=== PATIENT | male | born 1955 | race Caucasian/White ===

== ENCOUNTER 2016-08-21 06:45 | Observation (INO) | payer MEDICARE, OTHER ==
[~2016-08-21] VITALS: Ht 172.7 cm; Wt 80.0 kg
[2016-08-21] VITALS (10 sets, daily range): BP systolic 129–160; BP diastolic 80–103; PULSE 70–98; RESP 16–20; TEMP 98.3–98.7; O2SAT 97–100
[~2016-08-21 06:45] MED LIST: HYDR-2768 PO; METH500T3 PO; METO50TA OR; NEUR400C PO; TRAM50 PO
[2016-08-21] MEDS ORDERED: SODIUM CHLOR 0.9% 1000 ML INJ 1,000 ML IV SCH (07:06)
[2016-08-21] MEDS ORDERED: METO50TA PO (07:09)
[2016-08-21] MEDS ORDERED: ceFAZolin 2 GM PREMIX 50 ML IV ONE (07:15)
[2016-08-21] MEDS ORDERED: DIPHTH/TETANUS/ACEL PERTUSSIS (BOOSTER) 0.5 ML VIAL/PFS IM ONE (07:15)
[2016-08-21] MEDS ORDERED: SODIUM CHLORIDE 0.9% FLUSH 10 ML FLUSH IVF PRN (07:15)
--- NOTE | 2016-08-21 07:19 | PD ---
HPI Chief Complaint: Fall Time Seen by Provider: 07:06 Travel History International Travel<30 days: No Contact w/Intl Traveler<30days: No Traveled to known affect area: No History of Present Illness HPI The patient is a 60 year old male who presents to the [facility] emergency department with a history of reportedly getting up to go the bathroom at approximately 2:30 AM, and this is the last thing the patient recalls. The patient was found outside of his mobile home on the ground with hematoma to the right side of his head. The patient normally uses a cane or walker for assistance with walking as he does have a right [id number]-[id number] amputation with a prosthetic device. The patient reports that he cannot recall how he ended up outside. The patient is incontinent of urine and stool. The patient arrives by ambulance services in full C-spine immobilization on a backboard. The patient on arrival is drowsy although easily awakened. The patient is able to provide his history. He is unsure whether he passed out. The patient denies any extremity pain. The patient denies any numbness or tingling to his extremities. He denies having any one-sided weakness, facial droop, slurred speech, or difficulty with word finding ability. The patient denies any recent fevers, cough, congestion, neck pain, chest pain, shortness of breath, abdominal pain, vomiting, diarrhea, urinary symptoms, or other neurologic symptoms. [facility] Past Medical History Narrative Medical The patient's past medical history is significant for hypertension, seasonal allergies, psychiatric disorder, acid reflux, COPD. Arthritis: No Asthma: No Autoimmune Disease: No Blood Disorders: No Anxiety: Yes Depression: No Heart Rhythm Problems: No Cancer: Yes (QUESTIONABLE HISTORY OF COLON CA) Cardiovascular Problems: Yes High Cholesterol: No Chemotherapy: No Chest Pain: No Congestive Heart Failure: No COPD: Yes Cerebrovascular Accident: No Diabetes: No Diminished Hearing: No Endocrine: No Gastrointestinal Disorders: Yes GERD: Yes Glaucoma: No Genitourinary: No Headaches: Yes Hepatitis: No Hiatal Hernia: No Hypertension: Yes Immune Disorder: No Implanted Vascular Access Dvce: Yes Kidney Stones: No Musculoskeletal: Yes (RIGHT AKA; RIGHT 5th FINGER FX.-10/05/08) Neurologic: Yes Psychiatric: Yes (PTSD) Reproductive: No Respiratory: Yes (SINUS PROBLEMS/NASAL ALLERGIES) Migraines: No Myocardial Infarction: No Radiation Therapy: No Renal Failure: No Seizures: No Sickle Cell Disease: No Sleep Apnea: No Thyroid Disease: No Ulcer: No Past Surgical History Narrative Surgical The Patient has a history of an exploratory abdominal surgery, appendectomy, right [id number] amputation, left leg ORIF Abdominal Surgery: Yes (EXPLORATORY LAP.; APPENDECTOMY) AICD: No Appendectomy: Yes Arteriovenous Shunt: No Body Medical Devices: HARDWARE LEFT LEG Cardiac Surgery: No Cholecystectomy: No Ear Surgery: No Endocrine Surgery: No Eye Surgery: No Genitourinary Surgery: No Gynecologic Surgery: No Insulin Pump: No Joint Replacement: No Oral Surgery: No Pacemaker: No Thoracic Surgery: No Other Surgery: Yes (R AKA; LEFT LEG PINS AND RODS; APPENDECTOMY; ) Social History Alcohol Use: No Tobacco Use: No Substance Use: No Allergies-Medications (Allergen,Severity, Reaction): Coded Allergies: Aspirin (Verified Allergy, Severe, MUSCLE SPASM, 08/21/16) Flexeril (Verified Allergy, Severe, MUSCLE SPASM, 08/21/16) Reported Meds & Prescriptions Reported Meds & Active Scripts Active Reported Metoprolol Tartrate 50 Mg Tab 50 Mg PO DAILY Review of Systems Except as stated in HPI: all other systems reviewed are Neg General / Constitutional: No: Fever Eyes: No: Visual changes HENT: Positive: Headaches, No: Neck Stiffness, Neck Pain Cardiovascular: No: Chest Pain or Discomfort Respiratory: No: Shortness of Breath Gastrointestinal: No: Nausea, Vomiting, Diarrhea, Abdominal Pain Genitourinary: No: Dysuria Musculoskeletal: No: Pain Skin: No Rash Neurologic: Positive: Weakness (generalized weakness), No: Focal Abnormalities , Change in Mentation, Slurred Speech, Sensory Disturbance Psychiatric: No: Depression Endocrine: No: Polydipsia Hematologic/Lymphatic: No: Easy Bruising Physical Exam Narrative General: The patient is a well-developed well-nourished male in no acute distress. The patient is brought in on a back board in full c-spine immobilization by emergency services. Head and Neck exam: Head is normocephalic, with evidence of trauma to the left side of the forehead , left lateral eyebrow area where he has a hematoma with overlying abrasion. There is tenderness on palpation. There is swelling to the upper eyelid. No step-off or crepitus. No increase facial bone motility on palpation. No other facial bone tenderness on palpation. Eyes: EOMI, pupils are equal round and reactive to light. Nose: Midline septum with pink mucous membranes Mouth: Dentition unremarkable. Moist mucus membranes. Posterior oropharynx is not erythematous. No tonsillar hypertrophy. Uvula midline. Airway patent. Neck: The patient is immobilized in a cervical collar. No tracheal deviation. The trachea appears midline. Cardiovascular: Regular rate and rhythm without murmurs, gallops, or rubs. No pulse deficit to the extremities. Lungs: Clear to auscultation bilaterally. No wheezes, rhonchi, or rales. No chest wall tenderness to palpation. No erythema or ecchymosis noted. No crepitus , step off, or flail segment noted. Abdomen: Soft, without tenderness to palpation in all 4 quadrants of the abdomen. No guarding, rebound, or rigidity. No erythema or ecchymosis noted. Extremities: No instability or pain noted on pelvic rock. No clubbing, cyanosis , or edema. 2+ pulses in all 4 extremities. No extremity tenderness or deformity noted on palpation or passive/ active range of motion. Back: The patient was log rolled off of the back board. No spinous process tenderness to palpation. No stepoff or crepitus noted. No costovertebral angle tenderness to palpation. No erythema or ecchymosis. Neurologic Exam: Cranial nerves 2-12 were intact on exam. Strength is 5/5 in all 4 extremities. No sensory deficits noted. Skin Exam: The patient has erythematous papules noted on his extremities and along the waistband. There are no burrowing sosa. The patient is noted to have insects in his clothing suspicious for bedbugs. The patient has an abrasion to the right dorsum of the fifth digit. There is no crepitus or step- off. The patient has full range of motion without pain. Data Data Last Documented VS Vital Signs Date Time Temp Pulse Resp B/P Pulse Ox O2 Delivery O2 Flow Rate FiO2 08/21/16 06:53 75 18 96 08/21/16 06:48 98.7 150/103 Orders Electrocardiogram (08/21/16 07:06) Complete Blood Count With Diff (08/21/16 07:06) Comprehensive Metabolic Panel (08/21/16 07:06) Creatine Kinase (Cpk) (08/21/16 07:06) Ckmb (Isoenzyme) Profile (08/21/16 07:06) Troponin I (08/21/16 07:06) B-Type Natriuretic Peptide (08/21/16 07:06) Prothrombin Time / Inr (Pt) (08/21/16 07:06) Act Partial Throm Time (Ptt) (08/21/16 07:06) Lipase (08/21/16 07:06) Urinalysis - C+S If Indicated (08/21/16 07:06) Magnesium (Mg) (08/21/16 07:06) Chest, Single Ap (08/21/16 07:06) Ct Brain W/O Iv Contrast(Rout) (08/21/16 07:06) Pelvis, Ap Only (Routine) (08/21/16 07:06) Iv Access Insert/Monitor (08/21/16 07:06) Ecg Monitoring (08/21/16 07:06) Oximetry (08/21/16 07:06) Remove Backboard (08/21/16 07:06) Drug Screen, Random Urine (08/21/16 07:06) Alcohol (Ethanol) (08/21/16 07:06) Ct Cerv Spine W/O Contrast (08/21/16 07:06) Cefazolin 2 Gm Premix (Ancef 2 Gm Premix (08/21/16 07:15) Swpt-Elw-Wikqwj (Booster) Inj (Boostrix (08/21/16 07:15) Sodium Chlor 0.9% 1000 Ml Inj (Ns 1000 M (08/21/16 07:06) Sodium Chloride 0.9% Flush (Ns Flush) (08/21/16 07:15) MDM Medical Decision Making Medical Screen Exam Complete: Yes Emergency Medical Condition: Yes Medical Record Reviewed: Yes Differential Diagnosis Intracranial trauma, versus cervical spine injury, versus syncope, versus cardiac arrhythmia Narrative Course During the course of the patients emergency department visit, the patients history, examination, and differential diagnosis were reviewed with the patient. The patient had IV access obtained and blood work sent for analysis. 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 An EKG was ordered. A CT scan of the head and neck was ordered. A chest x-ray, pelvic x-ray was ordered. The patient was initially provided an update of his tetanus, Ancef 2 g IV, normal saline IV fluids. The patients laboratory studies and imaging studies were pending at the conclusion of my shift. The patient's case was checked out to the oncoming emergency physician to disposition based on the conclusion of his workup. Emma Salas MD August 21, 2016 07:19
[2016-08-21 07:39] LABS: AUTOMATED NEUTROPHIL # 14.4 TH/MM3 (1.8-7.7); BASOPHIL % 0.2 % (0.0-2.0); HEMATOCRIT 37.7 % (39.0-51.0); HEMO FLAGS DIFF FINAL; LYMPH % 5.6 % (9.0-44.0); LYMPHOCYTE # 0.9 TH/MM3 (1.0-4.8); MEAN CELL VOLUME 93.9 FL (80.0-100.0); MEAN CORPUSCULAR HEMOGLOBIN 33.5 PG (27.0-34.0); MEAN CORPUSCULAR HGB CONC 35.6 % (32.0-36.0); MONO % 5.1 % (0.0-8.0); NEUT % 89.1 % (16.0-70.0); PLATELET COUNT 259 TH/MM3 (150-450); RED BLOOD COUNT 4.01 MIL/MM3 (4.50-5.90); RED CELL DISTRIBUTION WIDTH 12.8 % (11.6-17.2); WHITE BLOOD COUNT 16.1 TH/MM3 (4.0-11.0)
[2016-08-21 07:46] LABS: APTT (PATIENT) 24.2 SEC (24.3-30.1); INTERNATIONAL NORMALIZED RATIO 1.1 RATIO
[2016-08-21 07:51] LABS: ANION GAP 10 MEQ/L (5-15); AST (GOT) 83 U/L (15-37); BICARBONATE 27.2 MEQ/L (21.0-32.0); BLOOD UREA NITROGEN 7 MG/DL (7-18); CHLORIDE 102 MEQ/L (98-107); GLOMERULAR FILTRATION RATE 107 ML/MIN (>89); MAGNESIUM 2.1 MG/DL (1.5-2.5); POTASSIUM 3.1 MEQ/L (3.5-5.1); SODIUM (NA) 139 MEQ/L (136-145)
[2016-08-21 07:54] LABS: ALKALINE PHOSPHATASE 48 U/L (45-117); ALT (GPT) 119 U/L (12-78); CREATINE KINASE 129 U/L (39-308); TOTAL BILIRUBIN ADULT 0.6 MG/DL (0.2-1.0)
[2016-08-21 08:06] LABS: CKMB 2.4 NG/ML (0.5-3.6)
[2016-08-21] MEDS ORDERED: SODIUM CHLOR 0.9% 1000 ML INJ 1,000 ML IV ONE (08:45)
--- NOTE | 2016-08-21 09:00 | RADRPT ---
EXAM DATE/TIME: 08/21/2016 08:00 [facility] COMPARISON: No previous studies available for comparison. INDICATIONS : Pain after fall. MEDICAL HISTORY : None. SURGICAL HISTORY : None. ENCOUNTER: Initial ACUITY: 1 day PAIN SCORE: 0/10 LOCATION: Bilateral Pelvis. FINDINGS: The bony structures of the pelvis are grossly intact. There is good alignment of the SI joints and pu bis symphysis. The right hip is unremarkable. There is some shortening of the left femoral neck which could be positional. There are degenerative changes of the lower lumbar spine. CONCLUSION: 1. Shortening of the left femoral neck. Recommend a complete x-ray study of the left hip. 2. The bony structures of pelvis are grossly intact. Saeid Barba MD on August 21, 2016 at 8:56 Board Certified Radiologist. This report was verified electronically.
--- NOTE | 2016-08-21 09:07 | RADRPT ---
EXAM DATE/TIME: 08/21/2016 07:55 [facility] COMPARISON: No previous studies available for comparison. INDICATIONS : Chest pain. MEDICAL HISTORY : None. SURGICAL HISTORY : None. ENCOUNTER: Initial ACUITY: 1 day PAIN SCORE: 0/10 LOCATION: Bilateral chest FINDINGS: Portable AP view of the chest demonstrates a normal-sized cardiac silhouette. No effusion, consolidat ion, or pneumothorax is visualized. The bones and soft tissues demonstrate no acute abnormality. Ther e are old healed left rib fractures and there is an old healed right clavicle fracture. CONCLUSION: No acute cardiopulmonary abnormality is identified. Luca Reno MD on August 21, 2016 at 9:02 Board Certified Radiologist. This report was verified electronically.
--- NOTE | 2016-08-21 10:00 | RADRPT ---
EXAM DATE/TIME: 08/21/2016 09:28 [facility] COMPARISON: PELVIS AP ONLY, August 21, 2016, 8:00. INDICATIONS : Fell. MEDICAL HISTORY : None. SURGICAL HISTORY : None. ENCOUNTER: Initial ACUITY: 1 day PAIN SCORE: Non-responsive. LOCATION: Left hip FINDINGS: Examination of the left hip was performed. There continues to be shortening of the left femoral neck compared to the right side. A Definite fracture line is not seen on plain films. However, the neck sh ortening is suspicious. Therefore, recommend a noncontrast CT scan of the left hip further evaluation . CONCLUSION: There continues to be shortening of the left neck. Recommend noncontrast CT scan of the left hip for further evaluation. Saeid Barba MD on August 21, 2016 at 9:57 Board Certified Radiologist. This report was verified electronically.
--- NOTE | 2016-08-21 10:23 | PD ---
Physical Exam Narrative GENERAL: well-developed patient. SKIN: Warm and dry. HEAD: Normocephalic and abrasions noted to left forehead EYES: No injection or drainage. ENT: No nasal drainage noted. NECK: Supple, trachea midline. c-collar in place CARDIOVASCULAR: Regular rate and rhythm RESPIRATORY: no increased effort. No accessory muscle use. GASTROINTESTINAL: Abdomen soft, non-tender, nondistended. EXTREMITIES: nttp over bilateral hips but limited exam NEUROLOGICAL: Awake, moves extremities. Normal speech. Data Data Last Documented VS Vital Signs Date Time Temp Pulse Resp B/P Pulse Ox O2 Delivery O2 Flow Rate FiO2 08/21/16 08:43 70 16 137/98 98 Room Air 08/21/16 06:48 98.7 Orders Electrocardiogram (08/21/16 07:06) Complete Blood Count With Diff (08/21/16 07:06) Comprehensive Metabolic Panel (08/21/16 07:06) Creatine Kinase (Cpk) (08/21/16 07:06) Ckmb (Isoenzyme) Profile (08/21/16 07:06) Troponin I (08/21/16 07:06) B-Type Natriuretic Peptide (08/21/16 07:06) Prothrombin Time / Inr (Pt) (08/21/16 07:06) Act Partial Throm Time (Ptt) (08/21/16 07:06) Lipase (08/21/16 07:06) Urinalysis - C+S If Indicated (08/21/16 07:06) Magnesium (Mg) (08/21/16 07:06) Chest, Single Ap (08/21/16 07:06) Ct Brain W/O Iv Contrast(Rout) (08/21/16 07:06) Pelvis, Ap Only (Routine) (08/21/16 07:06) Iv Access Insert/Monitor (08/21/16 07:06) Ecg Monitoring (08/21/16 07:06) Oximetry (08/21/16 07:06) Remove Backboard (08/21/16 07:06) Drug Screen, Random Urine (08/21/16 07:06) Alcohol (Ethanol) (08/21/16 07:06) Ct Cerv Spine W/O Contrast (08/21/16 07:06) Cefazolin 2 Gm Premix (Ancef 2 Gm Premix (08/21/16 07:15) Xpry-Ioo-Azdhdg (Booster) Inj (Boostrix (08/21/16 07:15) Sodium Chlor 0.9% 1000 Ml Inj (Ns 1000 M (08/21/16 07:06) Sodium Chloride 0.9% Flush (Ns Flush) (08/21/16 07:15) CKMB (08/21/16 07:18) CKMB% (08/21/16 07:18) Cath For Specimen (08/21/16 08:38) Sodium Chlor 0.9% 1000 Ml Inj (Ns 1000 M (08/21/16 08:45) Hip, Uni(4+Vws) Wo Ap Pelvis (08/21/16 ) Ct Hip W/O Contrast (08/21/16 ) Admit Order (Ed Use Only) (08/21/16 10:37) Labs Laboratory Tests Test 08/21/16 07:18 White Blood Count 16.1 TH/MM3 Red Blood Count 4.01 MIL/MM3 Hemoglobin 13.4 GM/DL Hematocrit 37.7 % Mean Corpuscular Volume 93.9 FL Mean Corpuscular Hemoglobin 33.5 PG Mean Corpuscular Hemoglobin 35.6 % Concent Red Cell Distribution Width 12.8 % Platelet Count 259 TH/MM3 Mean Platelet Volume 8.7 FL Neutrophils (%) (Auto) 89.1 % Lymphocytes (%) (Auto) 5.6 % Monocytes (%) (Auto) 5.1 % Eosinophils (%) (Auto) 0.0 % Basophils (%) (Auto) 0.2 % Neutrophils # (Auto) 14.4 TH/MM3 Lymphocytes # (Auto) 0.9 TH/MM3 Monocytes # (Auto) 0.8 TH/MM3 Eosinophils # (Auto) 0.0 TH/MM3 Basophils # (Auto) 0.0 TH/MM3 CBC Comment DIFF FINAL Differential Comment Prothrombin Time 12.0 SEC Prothromb Time International 1.1 RATIO Ratio Activated Partial 24.2 SEC Thromboplast Time Sodium Level 139 MEQ/L Potassium Level 3.1 MEQ/L Chloride Level 102 MEQ/L Carbon Dioxide Level 27.2 MEQ/L Anion Gap 10 MEQ/L Blood Urea Nitrogen 7 MG/DL Creatinine 0.74 MG/DL Estimat Glomerular Filtration 107 ML/MIN Rate Random Glucose 155 MG/DL Calcium Level 8.9 MG/DL Magnesium Level 2.1 MG/DL Total Bilirubin 0.6 MG/DL Aspartate Amino Transf 83 U/L (AST/SGOT) Alanine Aminotransferase 119 U/L (ALT/SGPT) Alkaline Phosphatase 48 U/L Total Creatine Kinase 129 U/L Creatine Kinase MB 2.4 NG/ML Troponin I LESS THAN 0.02 NG/ML B-Type Natriuretic Peptide 3 PG/ML Total Protein 7.7 GM/DL Albumin 3.8 GM/DL Lipase 74 U/L Ethyl Alcohol Level LESS THAN 3 MG/DL [facility] Supervised Visit with JAIME: No Interpretation(s) CBC & BMP Diagram 08/21/16 07:18 Last 24 hours Impressions Pelvis X-Ray 08/21/16705 Signed Impressions: Service Date/Time: Sunday, August 21, 2016 08:00 - CONCLUSION: 1. Shortening of the left femoral neck. Recommend a complete x-ray study of the left hip. 2. The bony structures of pelvis are grossly intact. Saeid Barba MD Chest X-Ray 08/21/16705 Signed Impressions: Service Date/Time: Sunday, August 21, 2016 07:55 - CONCLUSION: No acute cardiopulmonary abnormality is identified. Luca Reno MD Hip X-Ray 08/21/16 0000 Signed Impressions: Service Date/Time: Sunday, August 21, 2016 09:28 - CONCLUSION: There continues to be shortening of the left neck. Recommend noncontrast CT scan of the left hip for further evaluation. Saeid Barba MD Last 24 hours Impressions Pelvis X-Ray 08/21/16705 Signed Impressions: Service Date/Time: Sunday, August 21, 2016 08:00 - CONCLUSION: 1. Shortening of the left femoral neck. Recommend a complete x-ray study of the left hip. 2. The bony structures of pelvis are grossly intact. Saeid Barba MD Head CT 08/21/16705 Signed Impressions: Service Date/Time: Sunday, August 21, 2016 12:42 - CONCLUSION: 1. Unremarkable CT scan of the brain. 2. Soft tissue swelling left forehead. Saeid Barba MD Chest X-Ray 08/21/16705 Signed Impressions: Service Date/Time: Sunday, August 21, 2016 07:55 - CONCLUSION: No acute cardiopulmonary abnormality is identified. Luca Reno MD Hip X-Ray 08/21/16 0000 Signed Impressions: Service Date/Time: Sunday, August 21, 2016 09:28 - CONCLUSION: There continues to be shortening of the left neck. Recommend noncontrast CT scan of the left hip for further evaluation. Saeid Barba MD Narrative Course Signed over to me to follow workup and will likely need admit for syncope. Pelvic x-ray requested isolated hip x-ray which was added on and CT suggested which was also added on. Given patient's bedbug issue CT will need to be shut down for multiple hours after imaging so it has been requested that he have imaging on the way to his admission bed. We'll discuss with medical team. Patient updated. 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 He states he's not on any seizure medicine. He doesn't know why he had a seizure or if he is ever had one before and is very hard to get history from. Physician Communication Physician Communication resident team agrees to admit, will follow ct's given need to go on way to admit bed to limit exposure of bed bugs Diagnosis Primary Impression: Fall Qualified Code: W19.XXXA - Fall, initial encounter Admitting Information Admitting Physician Requests: Observation Sandrita Rockwell MD August 21, 2016 10:23
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
[2016-08-21] MEDS: D5-1/2 NS + KCL 20 MEQ INJ 1,000 ML IV SCH ×2 (11:06→21:06)
[2016-08-21] MEDS ORDERED: SENNOSIDES 8.6 MG TAB PO PRN (11:15)
[2016-08-21] MEDS ORDERED: LORazepam 2 MG/ML VIAL IV PUSH PRN ×4 (11:15)
[2016-08-21] MEDS ORDERED: NALOXONE HCL 0.4 MG/ML AMP IV PRN (11:15)
[2016-08-21] MEDS ORDERED: ZOLPIDEM TARTRATE 5 MG TAB PO PRN (11:15)
[2016-08-21] MEDS ORDERED: LORazepam 1 MG TAB PO PRN (11:15)
[2016-08-21] MEDS ORDERED: MAGNESIUM HYDROXIDE SUSP 30 ML CUP PO PRN (11:15)
[2016-08-21] MEDS ORDERED: HALOPERIDOL LACTATE 5 MG/ML AMP IM PRN (11:15)
[2016-08-21] MEDS ORDERED: FLUMAZENIL 0.5 MG/5 ML VIAL IV PUSH PRN (11:15)
[2016-08-21] MEDS: DOCUSATE SODIUM 50 MG/SENNA 8.6 MG TAB PO SCH ×2 (11:15→21:51)
[2016-08-21] MEDS ORDERED: ACETAMINOPHEN 325 MG TAB PO PRN (11:15)
[2016-08-21] MEDS ORDERED: SODIUM CHLORIDE 0.9% FLUSH 10 ML FLUSH IV FLUSH PRN (11:15)
[2016-08-21] MEDS ORDERED: LORazepam 2 MG TAB PO PRN (11:15)
[2016-08-21] MEDS ORDERED: LACTULOSE SYRUP 20 GM/30 ML CUP PO PRN (11:15)
[2016-08-21] MEDS ORDERED: BISACODYL 10 MG SUPP RECTAL PRN (11:15)
[2016-08-21] MEDS ORDERED: ONDANSETRON HCL 4 MG/2 ML VIAL IVP PRN (11:15)
[2016-08-21] MEDS: HEPARIN SODIUM - SQ 10,000 UNITS/ML VIAL SQ SCH ×2 (12:00→21:52)
[2016-08-21] MEDS ORDERED: ACETAMINOPHEN/HYDROcodone 325 MG/5 MG TAB PO PRN (12:30)
--- NOTE | 2016-08-21 13:05 | RADRPT ---
EXAM DATE/TIME: 08/21/2016 12:42 [facility] COMPARISON: No previous studies available for comparison. INDICATIONS : Trauma from a fall. RADIATION DOSE: 60.75 CTDIvol (mGy) MEDICAL HISTORY : Cardiovascular disease. Hypertension. SURGICAL HISTORY : None. ENCOUNTER: Initial ACUITY: 1 day PAIN SCALE: 0/10 LOCATION: Left facial lt orbit area. TECHNIQUE: Multiple contiguous axial images were obtained of the head. Using automated exposure control and adj ustment of the mA and/or kV according to patient size, radiation dose was kept as low as reasonably a chievable to obtain optimal diagnostic quality images. FINDINGS: CEREBRUM: The ventricles are normal for age. No evidence of midline shift, mass lesion, hemorrhage or acute in farction. No extra-axial fluid collections are seen. POSTERIOR FOSSA: The cerebellum and brainstem are intact. The 4th ventricle is midline. The cerebellopontine angle i s unremarkable. EXTRACRANIAL: The visualized portion of the orbits is intact. Soft tissue swelling left forehead. SKULL: The calvaria is intact. No evidence of skull fracture. CONCLUSION: 1. Unremarkable CT scan of the brain. 2. Soft tissue swelling left forehead. Saeid Barba MD on August 21, 2016 at 13:03 Board Certified Radiologist. This report was verified electronically.
--- NOTE | 2016-08-21 13:22 | RADRPT ---
EXAM DATE/TIME: 08/21/2016 12:42 [facility] COMPARISON: No previous studies available for comparison. INDICATIONS : Trauma from fall. RADIATION DOSE: 20.63 CTDIvol (mGy) MEDICAL HISTORY : Cardiovascular disease. Hypertension. SURGICAL HISTORY : None. ENCOUNTER: Initial ACUITY: 1 day PAIN SCALE: 0/10 LOCATION: TECHNIQUE: Volumetric scanning of the cervical spine was performed. Multiplanar reconstructions in the sagittal, coronal and oblique axial planes were performed. Using automated exposure control and adjustment o f the mA and/or kV according to patient size, radiation dose was kept as low as reasonably achievable to obtain optimal diagnostic quality images. FINDINGS: VERTEBRAE: There is moderate diffuse primary degenerative changes throughout the entire cervical spine. Patient is status post anterior cervical fusion at C3-4. There is solid bony fusion at this level. There is d isc degeneration and disc space narrowing at C5-6 and C6-7. No acute bony fracture. ALIGNMENT: No evidence of subluxation. C2-C3: The bony spinal canal is normal in size. No evidence of disc bulge or herniation. The neural forami na are bilaterally patent. Bilateral facet arthritis. C3-C4: The bony spinal canal is normal in size. No evidence of disc bulge or herniation. The neural forami na are bilaterally patent. Bilateral facet arthritis. C4-C5: The bony spinal canal is normal in size. No evidence of disc bulge or herniation. The neural forami na are bilaterally patent. Bilateral facet arthritis. C5-C6: The bony spinal canal is normal in size. No evidence of disc bulge or herniation. The neural forami na are bilaterally patent. Bilateral facet arthritis. C6-C7: The bony spinal canal is normal in size. No evidence of disc bulge or herniation. The neural forami na are bilaterally patent. Bilateral facet arthritis C7-T1: The bony spinal canal is normal in size. No evidence of disc bulge or herniation. The neural forami na are bilaterally patent. Bilateral facet arthritis. CONCLUSION: 1. No acute bony fracture. 2. Anterior cervical fusion at C3-4 with solid bony fusion. 3. Moderate diffuse primary degenerative changes, disc degeneration and disc space narrowing at multi ple levels. 4. Bilateral facet arthritis at multiple levels. Saeid Barba MD on August 21, 2016 at 13:16 Board Certified Radiologist. This report was verified electronically.
--- NOTE | 2016-08-21 13:26 | RADRPT ---
EXAM DATE/TIME: 08/21/2016 12:49 [facility] COMPARISON: No previous studies available for comparison. INDICATIONS : Trauma from fall. RADIATION DOSE: 14.40 CTDIvol (mGy) MEDICAL HISTORY : Cerebrovascular disease. Hypertension. SURGICAL HISTORY : ENCOUNTER: Initial ACUITY: 1 day PAIN SCALE: 0/10 LOCATION: TECHNIQUE: Volumetric scanning of the hip was performed. Using automated exposure control and adjustment of the mA and/or kV according to patient size, radiation dose was kept as low as reasonably achievable to o btain optimal diagnostic quality images. FINDINGS: BONES: There is evidence of old healed fractures involving the right iliac wing and right inferior pubic salty us. No acute bony fractures are demonstrated. The proximal femurs grossly intact. There are degenerat evy changes of the lower lumbar spine. JOINTS: Mild joint space narrowing. No evidence of effusion. SOFT TISSUES: Muscles, tendons and neurovascular structures are grossly unremarkable. No evidence of mass, organize d fluid collection, or foreign body. CONCLUSION: 1. No acute bony fracture of the left hip. 2. Primary bony degenerative changes 3. Old healed fractures involving the right side of the pelvis. Saeid Barba MD on August 21, 2016 at 13:21 Board Certified Radiologist. This report was verified electronically.
[2016-08-21] MEDS: ACETAMINOPHEN/HYDROcodone 325 MG/10 MG TAB PO PRN ×2 (17:12→21:53)
--- NOTE | 2016-08-21 17:23 | EC ---
Study Study Date:08/21/2016 STUDY CONCLUSIONS SUMMARY - Procedure narrative: Image quality was fair. The study was technically limited due to poor patient compliance. - Left ventricle: The cavity size was normal. Wall thickness was normal. Systolic function was at the lower limits of normal. The estimated ejection fraction was in the range of 50% to 55%. Although no diagnostic regional wall motion abnormality was identified, this possibility cannot be completely excluded on the basis of this study. If LV function is below 40, please consider prescribing an ACEI or ARB or document rationale for non-use. PROCEDURE DATA STUDY STATUS: Elective. Procedure: Transthoracic echocardiography. Image quality was fair. The study was technically limited due to poor patient compliance. Scanning was performed from the parasternal, apical, and subcostal acoustic windows. Study completion: The patient tolerated the procedure well. Transthoracic echocardiography. M-mode, complete 2D, complete spectral Doppler, and color Doppler. Patient status: Inpatient. CARDIAC ANATOMY LEFT VENTRICLE: The cavity size was normal. Wall thickness was normal. Systolic function was at the lower limits of normal. The estimated ejection fraction was in the range of 50% to 55%. Although no diagnostic regional wall motion abnormality was identified, this possibility cannot be completely excluded on the basis of this study. AORTIC VALVE: The valve appears to be grossly normal. Doppler: There was no stenosis. No significant regurgitation. MITRAL VALVE: The valve appears to be grossly normal. Doppler: There was no evidence for stenosis. Trace regurgitation. LEFT ATRIUM: The atrium was normal in size. PULMONIC VALVE: Not well visualized. Doppler: There was no evidence for stenosis. No significant regurgitation. TRICUSPID VALVE: The valve appears to be grossly normal. Doppler: There was no evidence for stenosis. Trace regurgitation. PERICARDIUM: There was no pericardial effusion. Prepared and signed by Shorty Rhoades [id number]
[2016-08-21] MEDS: SODIUM CHLORIDE 0.9% FLUSH 10 ML FLUSH IV FLUSH SCH (21:00)
[2016-08-21 23:49] LABS: CREATINE KINASE 435 U/L (39-308)
[2016-08-22] VITALS (10 sets, daily range): BP systolic 106–167; BP diastolic 64–90; PULSE 59–86; RESP 18–19; TEMP 97.4–98.9; O2SAT 92–100
[2016-08-22] MEDS: D5-1/2 NS + KCL 20 MEQ INJ 1,000 ML IV SCH ×2 (05:26→17:40)
[2016-08-22] MEDS: HEPARIN SODIUM - SQ 10,000 UNITS/ML VIAL SQ SCH ×3 (05:26→20:35)
[2016-08-22 07:40] LABS: AUTOMATED NEUTROPHIL # 5.6 TH/MM3 (1.8-7.7); BASOPHIL % 0.4 % (0.0-2.0); EOSINOPHIL # 0.1 TH/MM3 (0-0.4); EOSINOPHIL % 1.4 % (0.0-4.0); HEMATOCRIT 31.9 % (39.0-51.0); HEMO FLAGS DIFF FINAL; LYMPH % 29.5 % (9.0-44.0); LYMPHOCYTE # 2.7 TH/MM3 (1.0-4.8); MEAN CELL VOLUME 95.2 FL (80.0-100.0); MEAN CORPUSCULAR HEMOGLOBIN 32.9 PG (27.0-34.0); MEAN CORPUSCULAR HGB CONC 34.6 % (32.0-36.0); MONO % 8.1 % (0.0-8.0); NEUT % 60.6 % (16.0-70.0); PLATELET COUNT 222 TH/MM3 (150-450); RED BLOOD COUNT 3.36 MIL/MM3 (4.50-5.90); WHITE BLOOD COUNT 9.2 TH/MM3 (4.0-11.0)
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
[2016-08-22 08:14] LABS: ANION GAP 9 MEQ/L (5-15); BICARBONATE 25.8 MEQ/L (21.0-32.0); BLOOD UREA NITROGEN 5 MG/DL (7-18); CHLORIDE 106 MEQ/L (98-107); GLOMERULAR FILTRATION RATE 190 ML/MIN (>89); SODIUM (NA) 141 MEQ/L (136-145)
[2016-08-22 08:15] LABS: CREATINE KINASE 475 U/L (39-308)
--- NOTE | 2016-08-22 08:25 | RADRPT ---
EXAM DATE/TIME: 08/22/2016 00:36 [facility] COMPARISON: No previous studies available for comparison. INDICATIONS : Syncope. MEDICAL HISTORY : Hypertension. Chronic obstructive pulmonary disease. Gastroesophageal reflux disease. Left eye catara cts. Head trauma. Neurologic problems. Dizziness. Headache. Numbness. Cardiac disorders. Sinus proble ms. Allergies. Occasional Constipation. Low back pain. Post traumatic stress disorder. Depression. An xiety. SURGICAL HISTORY : Appendectomy. Exploratory lap. Right above knee amputation. Right 5th finger. Orif left leg. ENCOUNTER: Initial ACUITY: 1 day PAIN SCORE: 6/10 LOCATION: Bilateral neck PEAK SYSTOLIC VELOCITIES (cm/sec): ICA/CCA RATIO: Right: 0.9 Left: 0.7 ICA: Right: 75 Left: 52 CCA: Right: 85 Left: 80 ECA: Right: 61 Left: 63 VERTEBRAL: Right: 40 antegrade Left: 25 antegrade Elevated flow velocities and ICA/CCA ratios have been found to correlate with increased degrees of vessel stenosis, calculated as percentage of diameter relative to a normal segment of distal ICA/CCA FINDINGS: RIGHT CAROTID: No significant stenosis is visualized. The waveforms are within normal limits. LEFT CAROTID: No significant stenosis is visualized. The waveforms are within normal limits. VERTEBRAL ARTERIES: Antegrade flow is seen in both vertebral arteries. MISCELLANEOUS: None. CONCLUSION: No evidence of flow-limiting carotid stenosis. Luca Melo MD on August 22, 2016 at 1:35 Board Certified Radiologist. This report was verified electronically.
[2016-08-22 08:32] LABS: CKMB 10.5 NG/ML (0.5-3.6)
[2016-08-22] MEDS: SODIUM CHLORIDE 0.9% FLUSH 10 ML FLUSH IV FLUSH SCH ×2 (09:00→20:36)
--- NOTE | 2016-08-22 09:18 | EKG ---
Date Performed: 08/21/2016 Time Performed: 19:35:20 PTAGE: 60 years EKG: Sinus rhythm NORMAL ECG PREVIOUS TRACING : 08/21/2016 19.35 DOCTOR: Stan Dong Interpretating Date/Time 08/23/2016 07:15:44
--- NOTE | 2016-08-22 09:36 | EKG ---
Date Performed: 08/21/2016 Time Performed: 14:28:51 PTAGE: 60 years EKG: Sinus rhythm PROLONGED QT INTERVAL ABNORMAL ECG PREVIOUS TRACING : 08/21/2016 07.42 DOCTOR: Stan Dong Interpretating Date/Time 08/22/2016 09:34:47
--- NOTE | 2016-08-22 09:46 | EKG ---
Date Performed: 08/21/2016 Time Performed: 07:42:06 PTAGE: 60 years EKG: Sinus rhythm NORMAL ECG NO PREVIOUS TRACING DOCTOR: Stan Dong Interpretating Date/Time 08/22/2016 09:44:42
[2016-08-22] MEDS: MULTIVITAMIN TAB PO SCH (10:01)
[2016-08-22] MEDS: THIAMINE HCL 100 MG TAB PO SCH (10:01)
[2016-08-22] MEDS: DOCUSATE SODIUM 50 MG/SENNA 8.6 MG TAB PO SCH ×2 (10:01→20:35)
[2016-08-22] MEDS: METOPROLOL TARTRATE 50 MG TAB PO SCH (10:01)
[2016-08-22] MEDS: ACETAMINOPHEN/HYDROcodone 325 MG/10 MG TAB PO PRN ×3 (10:01→20:35)
[2016-08-22] MEDS: FOLIC ACID 1 MG TAB PO SCH (10:01)
[2016-08-22 10:28] LABS: BLOOD, URINE SMALL (NEG); COMMENT (UR) CULT NOT INDICATED; CULTURE IF INDICATED CULT NOT INDICATED; GLUCOSE,URINE NEG (NEG); KETONE, URINE NEG (NEG); MUCUS URINE FEW /lpf (OCC); NITRITE,URINE NEG (NEG); URINE COLOR YELLOW (YELLW/STRAW)
[2016-08-22 10:29] LABS: AMPHETAMINE, URINE NEG (NEG); BARBITURATES, URINE NEG (NEG); COCAINE, URINE NEG (NEG)
[2016-08-22] MEDS ORDERED: POTASSIUM CHLORIDE 10 MEQ CONTROLLED RELEASE TAB PO ONE ×3 (10:30→10:45)
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
[2016-08-23] MEDS: ACETAMINOPHEN/HYDROcodone 325 MG/10 MG TAB PO PRN ×3 (02:06→13:19)
[2016-08-23] MEDS: HEPARIN SODIUM - SQ 10,000 UNITS/ML VIAL SQ SCH ×2 (03:26→13:19)
[2016-08-23] MEDS: D5-1/2 NS + KCL 20 MEQ INJ 1,000 ML IV SCH (03:54)
[2016-08-23 04:29] VITALS: PULSE 67
[2016-08-23 06:24] VITALS: BP 136/79; PULSE 68; RESP 18; TEMP 98.5; O2SAT 97
--- NOTE | 2016-08-23 07:12 | MG ---
cc: HALEY PINEDA M.D. Lab No: [id number] Date: 08/22/2016 Age: 60 Sex: M Race: DATE OF 1955 AGE [age] years old. EEG NUMBER [id number] REFERRING PHYSICIAN MD Miguelina ROOM [id number]. NOTE Drowsy/asleep study with photic stimulation only. CT is unremarkable. INDICATIONS FOR PROCEDURE Admitted after being found on the ground, falling, hitting his head, not taking his Dilantin. History of epilepsy and head trauma. MEDICATIONS Currently on - 1. Lopressor. 2. Folic acid. 3. Thiamine. 4. [place]. DESCRIPTION OF RECORD Some overall background artifact. Overall 7-8 Hz background, low amplitude, 20 microvolts. A lot of eye movement artifact. Some attenuation noted. Photic stimulation does show a driving response. Attenuation seen more during somnolence. No epileptiform features. IMPRESSION Overall normal-appearing EEG. Clinical correlation Haley Pineda MD DF/YUDI /10:36 PM /7:02 AM
[2016-08-23 08:05] VITALS: PULSE 62; PULSE 91
[2016-08-23] MEDS: THIAMINE HCL 100 MG TAB PO SCH (08:05)
[2016-08-23] MEDS: METOPROLOL TARTRATE 50 MG TAB PO SCH (08:05)
[2016-08-23] MEDS: MULTIVITAMIN TAB PO SCH (08:05)
[2016-08-23] MEDS: FOLIC ACID 1 MG TAB PO SCH (08:05)
[2016-08-23] MEDS: SODIUM CHLORIDE 0.9% FLUSH 10 ML FLUSH IV FLUSH SCH (08:06)
[2016-08-23] MEDS: DOCUSATE SODIUM 50 MG/SENNA 8.6 MG TAB PO SCH (09:00)
[2016-08-23 09:11] VITALS: BP 128/75; PULSE 67; RESP 20; TEMP 98.2; O2SAT 97
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
[2016-08-23 11:56] LABS: BICARBONATE 25.4 MEQ/L (21.0-32.0); POTASSIUM 4.3 MEQ/L (3.5-5.1)
[2016-08-23 12:10] VITALS: BP 140/83; PULSE 64; RESP 19; TEMP 98.4; O2SAT 98
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
[2016-08-23] MEDS ORDERED: HYDR-3516 PO (14:51)
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
[2016-08-25 09:18] LABS: BATH SALTS (MDPV) UR NEG (NEG); ECSTASY (MDMA) UR NEG (NEG); HEROIN (6-ACETYLMORPHINE) UR NEG (NEG); K2 SPICE UR NEG (NEG); OBMETHADONE UR NEG (NEG); PHENCYCLIDINE URINE NEG (NEG)
[2016-08-25 09:19] LABS: GABAPENTIN UR NEG (NEG); HYDROMORPHONE U POS (NEG); OXYCODONE (PERCODAN) NEG (NEG)
== END 2016-08-23 18:16 | disposition home or self-care (01) ==
LOC: NEPC 06:45 → NEDA 10:39 → NEPGCP 11:58 → HCIS 18:23 → NEPGCP 18:25 → HCPC 18:26 → NEPGCP 18:27
PROVIDERS: ADMIT Family Medicine; ATTEND Family Medicine
DX: S00.93XA Contusion of unspecified part of head, initial encounter (principal); I10 Essential (primary) hypertension; K21.9 Gastro-esophageal reflux disease without esophagitis; J44.9 Chronic obstructive pulmonary disease, unspecified; D72.829 Elevated white blood cell count, unspecified; Z89.611 Acquired absence of right leg above knee; Z88.6 Allergy status to analgesic agent; Z88.8 Allergy status to other drugs, medicaments and biological substances; W19.XXXA Unspecified fall, initial encounter
CPT/HCPCS: 70450; 71010; 72125; 72170; 73503; 73700; 80048; 80053; 80185; 80307; 81001; 82550; 82552; 83690; 83735; 83880; 84484; 85025; 85610; 85730; 87040; 90471; 90715; 93005; 93306; 93880; 95819; 96361; 96374; 99285; G0378; G0481; J0690; J1644; J2060; J3480; J7030; P9612